=== PATIENT | female | born 1960 | race Caucasian/White ===

== ENCOUNTER 2021-05-12 15:51 | Emergency (ER) | payer MEDICARE, OTHER ==
[~2021-05-12 15:51] MED LIST: AMLODIPINE BESYL5 MG PO; BACLOFEN10 MG PO; CENTRUM WOMEN1 EACH PO; CLARITIN10 MG PO; EXCEDRIN MIGRA1 EACH PO; GABAPENTIN300 MG PO; LIVALO1 MG PO; MELOXICAM15 MG PO; METFORMIN HCL1000 MG PO; OMEPRAZOLE 20MG20 MG PO; SERTRALINE HCL100 MG PO; TRULICITY1.5 MG/0.5 SC
[2021-05-12] MEDS ORDERED: MEDROL 4MG DOSEP4 MG PO (21:17)
== END 2021-05-12 22:09 | disposition home or self-care (01) ==
LOC: FER 15:51
DX: M51.16 Intervertebral disc disorders with radiculopathy, lumbar region (principal); M48.061 Spinal stenosis, lumbar region without neurogenic claudication; M51.17 Intervertebral disc disorders with radiculopathy, lumbosacral region; Z88.5 Allergy status to narcotic agent; Z88.8 Allergy status to other drugs, medicaments and biological substances; Z88.1 Allergy status to other antibiotic agents
CPT/HCPCS: 72100; 72131; 96372; J1885; J2930